=== PATIENT | female | born 1950 | race African-American/Black ===

== ENCOUNTER 2024-05-10 14:37 | Outpatient (CLI) | payer OTHER | END 2024-05-10 14:38 | disposition home or self-care (01) | LOC: CSHULT 14:37 | PROVIDERS: ATTEND Family Medicine | DX: I48.0 Paroxysmal atrial fibrillation (principal); I49.1 Atrial premature depolarization; I08.1 Rheumatic disorders of both mitral and tricuspid valves | CPT/HCPCS: 93306 ==